=== PATIENT | female | born 1995 | race Caucasian/White ===

== ENCOUNTER → 2017-10-08 | Outpatient (CLI) | payer BC | LOC: RAD 12:13 | DX: R10.31 Right lower quadrant pain (principal) | CPT/HCPCS: Q9967 ==

== ENCOUNTER → 2020-04-01 | Outpatient (CLI) | payer BC | LOC: VAS 15:34 → RAD 15:45 | DX: R07.9 Chest pain, unspecified (principal) ==

== ENCOUNTER → 2020-10-28 | Outpatient (CLI) | payer BC | LOC: RAD 10:06 | DX: H53.8 Other visual disturbances (principal); R42 Dizziness and giddiness | CPT/HCPCS: Q9967 ==

== ENCOUNTER 2021-09-16 16:42 | Emergency (ER) | payer BC ==
[~2021-09-16] VITALS: Ht 160 cm; Wt 90.4 kg
[2021-09-16] MEDS ORDERED: ESCITALOPRAM20 MG PO (17:20)
[2021-09-16] MEDS ORDERED: PROPRANOLOL HCL20 M2 PO (17:20)
[2021-09-16] MEDS ORDERED: ACETAZOLAMIDE125 M1 PO (17:24)
[2021-09-16 18:40] VITALS: BP 116/72
== END 2021-09-16 18:40 | disposition home or self-care (01) ==
LOC: ED 16:42
DX: R06.4 Hyperventilation (principal); R59.0 Localized enlarged lymph nodes; Z28.311 Partially vaccinated for COVID-19

== ENCOUNTER 2022-03-31 13:25 | Emergency (ER) | payer BC ==
[~2022-03-31] VITALS: Ht 160 cm; Wt 80.8 kg
[~2022-03-31 13:25] MED LIST: ACETAZOLAMIDE125 M1 PO; ESCITALOPRAM20 MG PO; PROPRANOLOL HCL20 M2 PO
[2022-03-31 14:40] LABS: HEMATOCRIT 41.8 % (37.0-47.0); HEMOGLOBIN 14.1 g/dL (12.5-16.0); MEAN CELL VOLUME 88 fl (78-100); MEAN CORPUSCULAR HEMOGLOBIN 30 pg (27-31); MEAN CORPUSCULAR HGB CONC 34 g/dL (33-37); MEAN PLATELET VOLUME 10.6 fl (7.4-10.4); PLATELET COUNT 256 K/mm3 (130-400); RED BLOOD COUNT 4.76 M/mm3 (4.10-5.30); RED CELL DISTRIBUTION WIDTH 12.2 % (11.5-14.5); WHITE BLOOD COUNT 8.5 K/mm3 (4.8-10.8)
[2022-03-31 14:52] LABS: ALBUMIN 4.1 g/dL (3.5-5.0)
[2022-03-31 14:53] LABS: POTASSIUM 3.5 mmol/L (3.5-5.1)
[2022-03-31 14:54] LABS: CALCIUM 8.9 mg/dL (8.3-10.5)
[2022-03-31 14:55] LABS: TOTAL PROTEIN 7.5 g/dL (6.4-8.3)
[2022-03-31 14:57] LABS: TOTAL BILIRUBIN 0.4 mg/dL (0.2-1.2)
[2022-03-31 15:16] LABS: URINE APPEARANCE CLEAR; URINE BILIRUBIN NEGATIVE (NEGATIVE); URINE BLOOD NEGATIVE (NEGATIVE); URINE COLOR YELLOW; URINE GLUCOSE NEGATIVE (NEGATIVE); URINE KETONE 1+ (NEGATIVE); URINE NITRATE NEGATIVE (NEGATIVE); URINE PROTEIN(semi-quant) TRACE (NEGATIVE); URINE UROBILINOGEN 1 mg/dL (NORMAL)
[2022-03-31 15:17] LABS: URINE LEUKOCYTE ESTERASE TRACE (NEGATIVE); URINE MUCUS PRESENT (NOT PRESENT)
[2022-03-31 15:41] LABS: LYMPHOCYTE 9 % (20-51); MONOCYTE 6 % (3-10); NEUTROPHILS 85 % (42-75)
[2022-03-31] MEDS ORDERED: ZOFRAN ODT4 MG PO (17:09)
[2022-03-31] MEDS ORDERED: CEPHALEXIN500 M1 PO (17:09)
[2022-03-31] MEDS ORDERED: IBU800 M1 PO (17:09)
[2022-03-31 17:52] VITALS: BP 122/73
== END 2022-03-31 17:34 | disposition home or self-care (01) ==
LOC: ED 13:25
PROVIDERS: Nurse Practitioner
DX: U07.1 COVID-19 (principal); N39.0 Urinary tract infection, site not specified; Z28.311 Partially vaccinated for COVID-19
CPT/HCPCS: J1885